=== PATIENT | female | born 1975 | race Caucasian/White ===

== ENCOUNTER 2021-05-12 15:26 | Emergency (ER) | payer MEDICAID ==
[~2021-05-12] VITALS: Ht 152.4 cm; Wt 73.5 kg
--- NOTE | 2021-05-12 15:43 | NUR ---
PT AMB TO ER BED 5
--- NOTE | 2021-05-12 15:52 | NUR ---
46 Y/O FEMALE C/O PINK TINGED VAGINAL DISHCARGE AND DYSURIA X2DAYS. PT STATES SHE IS 8 WEEKS . DENIES FEVER/CHILLS. DENIES N/V. PMH: HTN ALLERGIES: IBUPROFEN
--- NOTE | 2021-05-12 16:20 | NUR ---
COLLECTED BLOOD WORK, WALKED TO LAB.
[2021-05-12 16:45] LABS: BASOPHILS # (AUTO) 0.1 K/uL (0.00-0.22); BASOPHILS % (AUTO) 0.8 % (0.0-2.0); EOSINOPHILS # (AUTO) 0.2 K/uL (0-0.4); EOSINOPHILS % (AUTO) 2.7 % (0.0-4.0); HEMOGLOBIN 12.9 g/dL (12.0-16.0); LYMPHOCYTES # (AUTO) 2.1 K/uL (2.5-16.5); LYMPHOCYTES % (AUTO) 26.8 % (20.5-51.1); MEAN CORPUSCULAR HEMOGLOBIN 30 pg (27-31); MEAN CORPUSCULAR HGB CONC 34 g/dL (33-37); MEAN CORPUSCULAR VOLUME 87.2 fL (80-94); MONOCYTES # (AUTO) 0.6 K/uL (0.8-1.0); MONOCYTES % (AUTO) 7.4 % (1.7-9.3); NEUTROPHILS % (AUTO) 62.3 % (42.2-75.2); PLATELET COUNT (AUTO) 325 K/uL (140-450); RED BLOOD CELL COUNT(AUTO) 4.35 MIL/uL (4.20-5.40); RED CELL DISTRIBUTION WIDTH 14.8 % (11.6-13.7)
--- NOTE | 2021-05-12 16:55 | NUR ---
DR. GUTIERRES AT PT BEDSIDE FOR PELVIC EXAM.
--- NOTE | 2021-05-12 17:00 | NUR ---
PT REFUSING PELVIC AT THIS TIME.
[2021-05-12 17:11] LABS: ALBUMIN 3.1 g/dL (3.4-5.0); ANION GAP 12.6 (8-16); CARBON DIOXIDE 24.4 mmol/L (21-32); CREATININE 0.5 mg/dL (0.6-1.3); TOTAL BILIRUBIN 0.2 mg/dL (0.0-1.0)
[2021-05-12] MEDS ORDERED: NITR100C7 PO (17:39)
[2021-05-12] MEDS ORDERED: NITROFURANTOIN 100 MG CAP PO SCH (17:45)
[2021-05-12 18:07] VITALS: BP 124/74
--- NOTE | 2021-05-12 18:08 | NUR ---
Patient discharged with v/s stable. Written and verbal after care instructions given FOR URINARY TRACT INFECTION and explained. Patient alert, oriented and verbalized understanding of instructions. Ambulatory with steady gait. All questions addressed prior to discharge. ID band removed. Patient advised to follow up with PMD. Rx of MACROBID given. Patient educated on indication of medication including possible reaction and side effects. Opportunity to ask questions provided and answered.
== END 2021-05-12 18:07 | disposition home or self-care (01) ==
LOC: MED 15:26
DX: O23.41 Unspecified infection of urinary tract in pregnancy, first trimester (principal); Z3A.08 8 weeks gestation of pregnancy; Z79.899 Other long term (current) drug therapy; O20.0 Threatened abortion
CPT/HCPCS: 36415; 80053; 81002; 81025; 84702; 85025; 99283